=== PATIENT | male | born 1995 | race Hispanic/Latino ===

== ENCOUNTER 2018-11-29 14:49 | Emergency (ER) | payer OTHER ==
[~2018-11-29] VITALS: Ht 172.7 cm; Wt 72.6 kg
--- OUTSIDE RECORDS SUMMARY | 2018-11-29 14:52 | XMS REPORT | Encounter Summary ---
Author Organization Unknown Address [address] [place] [id number] Phone [phone] Reason for Visit Medical Complaint Instructions 1. Influenza-like symptoms rapid flu (A+B) rapid strep group A, throat 2. Streptococcal sore throat strep throat: care instructions amoxicillin 875 mg tablet 3. Acute sinusitis sinusitis: care instructions fluticasone 50 mcg/actuation nasal spray,suspension Zyrtec-D 5 mg-120 mg tablet,extended release Discussion Note Pt in NAD, understands all information provided Plan of Care Patient Instructions Pt will take abx as prescribed, implement warm salt-water gargles and monitor for fever. Please seek care (PCP, Urgent Care, ER) or return to [facility] if symptoms get worse or do not resolve in 1 week. Reminders Provider Appointments None recorded. Lab Rapid Flu (A+B) 05/10/2018 [facility] Rapid Strep Group a, Throat 05/10/2018 [facility] Referral None recorded. Procedures None recorded. Surgeries None recorded. Imaging None recorded. Medications Name Start Date amoxicillin 875 mg tablet Take 1 tablet every 12 hours by oral route for 10 days. fluticasone 50 mcg/actuation nasal spray,suspension [place] 1 spray twice a day by intranasal route. Zyrtec-D 5 mg-120 mg tablet,extended release Take 1 tablet every 12 hours by oral route for 7 days. Medications Administered None recorded. Vitals Height Weight BMI Blood Pressure 5 ft 7 in 147 lbs 23 kg/m2 100/72 mm[Hg] Lab Results Date Name Specimen Result Interpretation Description Value Range Status Address Rapid Strep Group a, Throat Result positive [facility]: [address] [place] [address] Swab Location Left and Right tonsillar pillars [facility]: [address] [place] [address] Rapid Flu (A+B) Influenza a negative [facility]: [address] [place] [address] Influenza B negative [facility]: [address] [place] [address] Allergies Code Code System Name Reaction Severity Status Onset NKDA Problems None recorded. Procedures None recorded. Vaccine List None recorded. Social History Smoking Status Never Smoker Past Encounters 05/10/2018 Influenza-like Symptoms; Streptococcal Sore Throat; Acute Sinusitis [facility] Jeffery, [employer] [facility]: [address] [place] [address], Ph. History of Present Illness Throat-Oral Complaint Reported By: Patient HPI: Location: throat. Quality: sore throat, congested, bark-like cough. Severity: mild. Duration: 2 days. Context: no sick contacts, no foreign travel, non- smoker. Associated Symptoms: no fever, no sputum production, no shortness of breath, no wheezing, no change in number of pillows needed to sleep at night, no sweats, no significant weight gain, no significant weight loss, no morning cough, no vomiting, no diarrhea, no rash, no nausea, headache, body aches, sweats, sore throat Review of Systems:ROS as noted in the HPI Review of Systems Basic Reported By: Patient Physical Exam Adult Basic, Adult Male Complete Reported By: Patient Constitutional: General Appearance: healthy-appearing, well-nourished, well-developed. Level of Distress: NAD. Ambulation: ambulating normally Psychiatric: Mental Status: active and alert. Orientation: to time, to place, to person [facility]bd[facility]-Ornnk-Throat: Ears: no lesions on external ear, no outer ear tenderness, EACs clear, TM mobility normal, TM erythematous. Hearing: no hearing loss. Nose: no lesions on external nose, nares patent, no septal deviation, nasal passages clear, sinus tenderness, post nasal drip. Lips, Teeth, and Gums: no mouth or lip ulcers, no bleeding gums, normal dentition. Oropharynx: erythema, exudates, tonsils enlarged 3+ Neck: Lymph Nodes: anterior cervical LAD Lungs: Respiratory effort: no dyspnea, no tachypnea, no use of accessory muscles, no intercostal retractions. Auscultation: breath sounds normal, good air movement Cardiovascular: Heart Auscultation: RRR, no murmurs Neurologic: Gait and Station: normal gait, normal station
--- OUTSIDE RECORDS SUMMARY | 2018-11-29 14:52 | XMS REPORT | Continuity of Care Document ---
Author Author [facility] Address Unknown Phone Unavailable Problems Problem Status Onset Date Classification Date Reported Comments Source Acute sinusitis 05/10/2018 Diagnosis 05/10/2018 [facility] Streptococcal sore throat 05/10/2018 Diagnosis 05/10/2018 [facility] Influenza-like symptoms 05/10/2018 Diagnosis 05/10/2018 [facility] Medications Medication Details Route Status Patient Instructions Ordering Provider Order Date Source Amoxicillin 875 MG Oral Tablet amoxicillin 875 mg tablet Take 1 tablet every 12 hours by oral route for 10 days. Active [facility] Fluticasone propionate 0.05 MG/ACTUAT Metered Dose Nasal [place] fluticasone 50 mcg/actuation nasal spray,suspension [place] 1 spray twice a day by intranasal route. Active [facility] 12 HR cetirizine hydrochloride 5 MG / Pseudoephedrine Hydrochloride 120 MG Extended Release Oral Tablet [Zyrtec-D] Zyrtec-D 5 mg-120 mg tablet,extended release Take 1 tablet every 12 hours by oral route for 7 days. Active [facility] Allergies, Adverse Reactions, Alerts Substance Category Reaction Severity Reaction type Status Date Reported Comments Source Immunizations Immunization Date Given Site Status Last Updated Comments Source Results Order Name Results Value Reference Range Date Interpretation Comments Source RESULT positive 05/10/2018 [facility] SWAB LOCATION Left and Right tonsillar pillars 05/10/2018 [facility] Influenza A negative 05/10/2018 [facility] Influenza B negative 05/10/2018 [facility] Vital Signs Vital Sign Value Date Comments Source Diastolic (mm Hg) 72 05/10/2018 [facility] Height 67 05/10/2018 [facility] Systolic (mm Hg) 100 05/10/2018 [facility] Weight 147 05/10/2018 [facility] Encounters Location Location Details Encounter Type Encounter Number Reason For Visit Attending Provider ADM Date DC Date Status Source [place] - [facility] - [id number] NP-C: [id number] [place] [address], Ph. [id number] [place] Jeffery 05/10/2018 [facility] Procedures Procedure Code Date Perfomer Comments Source
[2018-11-29] MEDS ORDERED: TYLENOL WITH C1 EACH PO (15:07)
[2018-11-29] MEDS ORDERED: CYCLOBENZAPRINE5 MG PO (15:07)
[2018-11-29] MEDS ORDERED: HYDROCODONE/APAP 10MG-325MG TAB PO NR (15:15)
[2018-11-29] MEDS ORDERED: DEXAMETHASONE SOD PHOS 10 MG/1 ML VIAL IM NR (15:15)
[2018-11-29] MEDS ORDERED: KETOROLAC TROMETHAMINE 60 MG/2 ML VIAL IM NR (15:15)
[2018-11-29] MEDS ORDERED: CYCLOBENZAPRINE HCL 10 MG TAB PO NR (15:15)
--- NOTE | 2018-11-29 16:16 | Diagnostic Imaging Report ---
Exam: Lumbar spine complete History: Injury lifting weights Comparison: None. Findings: There are 5 nonrib-bearing lumbar-type vertebral bodies. No acute, displaced fracture or subluxation. Soft tissue, ligamentous, and spinal cord abnormalities cannot be excluded on the basis of plain radiography. No pars interarticularis defects are identified on the oblique radiographs. Intervertebral disc spaces and facet joints are well-maintained. Sacroiliac joints are intact. Sacral foramina appear intact superiorly. Impression: No acute osseous abnormalities. Soft tissue, ligamentous, and spinal cord abnormalities cannot be excluded on the basis of plain radiography. Signed by: Dr. Isauro Gonzalez M.D. on 11/29/2018 4:13 PM
[2018-11-29 17:25] VITALS: BP 118/56
== END 2018-11-29 17:26 | disposition home or self-care (01) ==
LOC: ER 14:49
DX: M54.5 Low back pain (principal); S39.012A Strain of muscle, fascia and tendon of lower back, initial encounter; X50.0XXA Overexertion from strenuous movement or load, initial encounter; Y93.B9 Activity, other involving muscle strengthening exercises; Y92.39 Other specified sports and athletic area as the place of occurrence of the external cause
CPT/HCPCS: 72110; 99283; J1100; J1885